=== PATIENT | female | born 1965 | race Caucasian/White ===

== ENCOUNTER 2017-02-14 18:39 | Emergency (ER) | payer BC ==
[2017-02-14 19:06] VITALS: BP 136/79
--- NOTE | 2017-02-14 20:02 | UC ---
Cardiac HPI - HPI Summary HPI Summary: PT HAS HAD DULL INTERMITTENT LEFT ANTERIOR CHEST PAIN AND LEFT ARM PAIN FOR ABOUT A MONTH. EPISODES 2-3 TIMES PER WEEK LASTING A FEW MINUTES. TODAY PAIN IS PERSISTENT FOR THE PAST FEW HOURS. SHE DENIES ANY NAUSEA OR SWEATS BUT DOES HAVE SOME MILD SOB AND DIZZINESS. GOT WORSE WHEN SHE WAS WALKING AROUND. SHE HAS SOME SHARP SHOOTING PAINS DOWN LEFT ARM INTO HAND. - History of Current Complaint Chief Complaint: UCChestPain Stated Complaint: L SIDE ARM PAIN Time Seen by Provider: 02/14/17 19:19 Hx Obtained From: Patient, Family/Silk Screen [employer]or - Hx Last Menstrual Period: 02/01/17 Onset/Duration: Sudden Onset, Lasting Hours, Still Present Timing: Constant Initial Severity: Moderate Current Severity: Moderate Pain Intensity: 5 Chest Pain Location: Left Anterior Character: Dull/Aching Aggravating Factor(s): Exertion Alleviating Factor(s): Nothing Associated Signs & Symptoms: Positive: Chest Pain, Dizziness, SOB. Negative: Syncope, Fever, Diaphoresis, Nausea/Vomiting, Palpitations, Back Pain - Allergy/Home Medications Allergies/Adverse Reactions: Allergies Allergy/AdvReac Type Severity Reaction Status Date / Time No Known Allergies Allergy Verified 02/14/17 19:07 PMH/Surg Hx/FS Hx/Imm Hx Respiratory History: Asthma - Surgical History Surgical History: None - Family History Known Family History: Positive: Hypertension - Social History Alcohol Use: Daily Substance Use Type: None Smoking Status (MU): Never Smoked Tobacco Review of Systems Constitutional: Negative Respiratory: Shortness Of Breath Cardiovascular: Chest Pain Gastrointestinal: Negative Genitourinary: Negative Neurological: Other - DIZZY All Other Systems Reviewed And Are Negative: Yes Physical Exam Triage Information Reviewed: Yes Appearance: Well-Appearing, No Pain Distress, Well-Nourished Vital Signs: Initial Vital Signs Temp 99.2 F 02/14/17 19:01 Pulse 72 02/14/17 19:01 Resp 16 02/14/17 19:01 BP 136/79 02/14/17 19:01 Pulse Ox 99 02/14/17 19:01 Vital Signs Reviewed: Yes Eyes: Positive: Conjunctiva Clear ENT: Positive: Hearing grossly normal Neck: Positive: Supple, Nontender, No Lymphadenopathy Respiratory Exam: Normal Cardiovascular Exam: Normal Abdomen Description: Positive: Soft Musculoskeletal: Positive: No Edema Neurological: Positive: Alert Psychological: Positive: Age Appropriate Behavior Skin: Negative: rashes Diagnostics - EKG Cardiac Rate: NL Cardiac Rhythm: Sinus: Normal - 61 BPM Ectopy: None ST Segment: Normal - Assessment/Plan Course Of Treatment: TO [facility] BY PRIVATE CAR - Clinical Impression Provider Diagnoses: CHEST PAIN Discharge - Discharge Plan Condition: Stable Disposition: OTHER Discharge Disposition Comment: TO [facility] BY PRIVATE CAR Patient Education Materials: Chest Pain (ED) Referrals: Peggy Camargo MD [Primary Care Provider] - If Needed Additional Instructions: GO DIRECTLY TO [facility] FROM HERE FOR FURTHER EVALUATION.
== END 2017-02-14 19:56 ==
LOC: UCEAST 18:39
DX: R07.89 Other chest pain (principal)
CPT/HCPCS: 93005; 99212; G0463

== ENCOUNTER 2017-02-14 20:25 | Observation (INO) | payer BC ==
[2017-02-14] MEDS ORDERED: Aspirin Low Dose CHEW TAB* 81 MG PO ONE (21:25)
[2017-02-14] MEDS ORDERED: Nitroglycerin TAB 0.4 MG* 0.4 MG TAB SL ONE (21:25)
[2017-02-14] MEDS: NS 0.9% 1000 ML* 2,000 ML IV ONE ×2 (21:54→23:36)
[2017-02-14 21:57] LABS: ABS Basophils 0.1 10^3/ul (0-0.2); ABS Eosinophils 0.1 10^3/ul (0-0.6); ABS Lymphocytes 2.2 10^3/ul (1.0-4.8); ABS Monocytes 0.5 10^3/ul (0-0.8); ABS Neutrophils 3.1 10^3/ul (1.5-7.7); ABS Nucleated RBC 0 10^3/ul; Eosinophil % 1.5 % (0-6); Hematocrit 39 % (35-47); Hemoglobin 13.5 g/dl (12.0-16.0); Lymphocyte % 36.8 % (25-47); Mean Corpuscular HGB Conc 35 g/dl (31-36); Mean Corpuscular Hemoglobin 31 pg (27-31); Mean Corpuscular Volume 89 fL (80-97); Mean Platelet Volume 8 um3 (7.4-10.4); Nucleated Red Blood Cells % 0; Platelet Count 266 10^3/ul (150-450); Red Blood Count 4.33 10^6/ul (4.0-5.4); Red Cell Distribution Width 12 % (10.5-15); White Blood Count 5.9 10^3/ul (3.5-10.8)
[2017-02-14 22:08] LABS: INR 0.98 (0.77-1.02)
[2017-02-14 22:22] LABS: EGFR Non-African American 91.2 (>60)
[2017-02-14] MEDS ORDERED: Iohexol 350* (CONTRAST) 500 ML MDV IV ONE (22:24)
[2017-02-15] MEDS ORDERED: Ketorolac INJ* 30 MG/ML 1 ML VIAL IV ONE (00:53)
--- NOTE | 2017-02-15 03:48 | ED ---
Chung Hayes Abhishek, scribed for Arnaldo Pavon MD on 02/14/17 at 2120 . HPI Chest Pain - HPI Summary HPI Summary: This patient is a 51 year old F presenting to [facility] with a chief complaint of chest pressure since today 1600. Episodes of discomfort for a week. Todays episode is described as constant. The patient rates the pain 4/10 in severity. Symptoms aggravated by movement. Symptoms alleviated by nothing. Patient reports numbness/tingling in the pts fingers (left hand), neck pain, edema in LE, intermittent sharp pain in LUE, and SOB. Patient denies diaphoresis, and nausea. PTs was recently out of the country traveling in [facility]. No stress test in recent history according to the pt, and states previously normal EKGs. - History of Current Complaint Chief Complaint: EDChestPainROMI Time Seen by Provider: 02/14/17 21:07 Hx Obtained From: Patient Hx Last Menstrual Period: 02/01/17 Onset/Duration: Worse Since - today 1600 Timing: Intermittent - Current episode is described as constant, Lasting Days - since one week ago. Initial Severity: Moderate Current Severity: Moderate Pain Intensity: 4 Pain Scale Used: 0-10 Numeric Chest Pain Location: Diffuse Character: Pressure/Squeezing Aggravating Factor(s): Nothing Alleviating Factor(s): Nothing Associated Signs and Symptoms: Positive: Chest Pain, Numbness - pt's fingers, Shortness of Breath, Calf Pain/Swelling, Other: - neck pain. Negative: Diaphoresis, Nausea - Allergy/Home Medications Allergies/Adverse Reactions: Allergies Allergy/AdvReac Type Severity Reaction Status Date / Time No Known Allergies Allergy Verified 02/14/17 19:07 PMH/Surg Hx/FS Hx/Imm Hx Endocrine/Hematology History: Denies: Hx Diabetes, Hx Thyroid Disease Cardiovascular History: Denies: Hx Hypertension Respiratory History: Denies: Hx Asthma, Hx Chronic Obstructive Pulmonary Disease (COPD) GI History: Denies: Hx Ulcer - Cancer History Hx Chemotherapy: No Hx Radiation Therapy: No Infectious Disease History: No Infectious Disease History: Denies: Hx Hepatitis, Hx Human Immunodeficiency Virus (HIV), Traveled Outside the [place] in Last 30 Days - Family History Known Family History: Positive: Hypertension Negative: Cardiac Disease - Social History Alcohol Use: Daily Substance Use Type: Reports: None Smoking Status (MU): Never Smoked Tobacco Review of Systems Negative: Skin Diaphoresis Eyes: Negative ENT: Negative Positive: Chest Pain - "pressure" Positive: Shortness Of Breath Negative: Nausea Genitourinary: Negative Musculoskeletal: Other - intermittent sharp pain in LUE, neck pain Positive: Edema - LE Skin: Negative Positive: Numbness - in the left hand Psychological: Normal All Other Systems Reviewed And Are Negative: Yes Physical Exam - Summary Physical Exam Summary: General: well-appearing, no pain distress Skin: warm, color reflects adequate perfusion, dry Head: normal Eyes: EOMI, ISABELA ENT: normal Neck: supple, nontender Respiratory: CTA, breath sounds present Cardiovascular: RRR Abdomen: soft, nontender Bowel: present Musculoskeletal: normal, strength/ROM intact Neurological: normal, sensory/motor intact, A&O x3 Psychological: affect/mood appropriate Triage Information Reviewed: Yes Vital Signs On Initial Exam: Initial Vitals Temp Pulse Resp BP Pulse Ox 97.6 F 77 16 92/74 98 02/14/17 20:27 02/14/17 20:27 02/14/17 20:27 02/14/17 20:27 02/14/17 20:27 Vital Signs Reviewed: Yes Diagnostics - Vital Signs Vital Signs Temp Pulse Resp BP Pulse Ox 02/14/17 20:27 97.6 F 77 16 92/74 98 - Laboratory Lab Results: Lab Results 02/14/17 02/14/17 02/14/17 Range/Units 21:40 21:40 21:40 WBC (3.5-10.8) 10^3/ul RBC (4.0-5.4) 10^6/ul Hgb (12.0-16.0) g/dl Hct (35-47) % MCV (80-97) fL MCH (27-31) pg MCHC (31-36) g/dl RDW (10.5-15) % Plt Count (150-450) 10^3/ul MPV (7.4-10.4) um3 Neut % (Auto) (38-83) % Lymph % (Auto) (25-47) % [place] % (Auto) (1-9) % Eos % (Auto) (0-6) % Baso % (Auto) (0-2) % Absolute Neuts (auto) (1.5-7.7) 10^3/ul Absolute Lymphs (auto) (1.0-4.8) 10^3/ul Absolute Monos (auto) (0-0.8) 10^3/ul Absolute Eos (auto) (0-0.6) 10^3/ul Absolute Basos (auto) (0-0.2) 10^3/ul Absolute Nucleated RBC 10^3/ul Nucleated RBC % INR (Anticoag Therapy) 0.98 (0.77-1.02) APTT 30.3 (26.0-36.3) seconds D-Dimer, Quantitative < 200 (Less Than 230) ng/mL Sodium 136 (133-145) mmol/L Potassium 3.8 (3.5-5.0) mmol/L Chloride 101 (101-111) mmol/L Carbon Dioxide 29 (22-32) mmol/L Anion Gap 6 (2-11) mmol/L BUN 11 (6-24) mg/dL Creatinine 0.68 (0.51-0.95) mg/dL Est GFR ( Amer) 117.3 (>60) Est GFR (Non-Af Amer) 91.2 (>60) BUN/Creatinine Ratio 16.2 (8-20) Glucose 107 H (70-100) mg/dL Lactic Acid (0.5-2.0) mmol/L Calcium 9.1 (8.6-10.3) mg/dL Magnesium 2.0 (1.9-2.7) mg/dL Total Bilirubin 0.70 (0.2-1.0) mg/dL AST 22 (13-39) U/L ALT 28 (7-52) U/L Alkaline Phosphatase 45 (34-104) U/L Total Creatine Kinase 32 (10-223) U/L CK-MB (CK-2) 1.3 (0.6-6.3) ng/mL Troponin I 0.00 (<0.04) ng/mL C-Reactive Protein 2.05 (< 5.00) mg/L B-Natriuretic Peptide 24 ( - 100) pg/mL Total Protein 6.9 (6.4-8.9) g/dL Albumin 4.2 (3.2-5.2) g/dL Globulin 2.7 (2-4) g/dL Albumin/Globulin Ratio 1.6 (1-3) Lipase 12 (11.0-82.0) U/L TSH 1.54 (0.34-5.60) mcIU/mL 02/14/17 02/14/17 02/15/17 Range/Units 21:40 21:40 00:16 WBC 5.9 (3.5-10.8) 10^3/ul RBC 4.33 (4.0-5.4) 10^6/ul Hgb 13.5 (12.0-16.0) g/dl Hct 39 (35-47) % MCV 89 (80-97) fL MCH 31 (27-31) pg MCHC 35 (31-36) g/dl RDW 12 (10.5-15) % Plt Count 266 (150-450) 10^3/ul MPV 8 (7.4-10.4) um3 Neut % (Auto) 53.0 (38-83) % Lymph % (Auto) 36.8 (25-47) % [place] % (Auto) 7.6 (1-9) % Eos % (Auto) 1.5 (0-6) % Baso % (Auto) 1.1 (0-2) % Absolute Neuts (auto) 3.1 (1.5-7.7) 10^3/ul Absolute Lymphs (auto) 2.2 (1.0-4.8) 10^3/ul Absolute Monos (auto) 0.5 (0-0.8) 10^3/ul Absolute Eos (auto) 0.1 (0-0.6) 10^3/ul Absolute Basos (auto) 0.1 (0-0.2) 10^3/ul Absolute Nucleated RBC 0 10^3/ul Nucleated RBC % 0 INR (Anticoag Therapy) (0.77-1.02) APTT (26.0-36.3) seconds D-Dimer, Quantitative (Less Than 230) ng/mL Sodium (133-145) mmol/L Potassium (3.5-5.0) mmol/L Chloride (101-111) mmol/L Carbon Dioxide (22-32) mmol/L Anion Gap (2-11) mmol/L BUN (6-24) mg/dL Creatinine (0.51-0.95) mg/dL Est GFR ( Amer) (>60) Est GFR (Non-Af Amer) (>60) BUN/Creatinine Ratio (8-20) Glucose (70-100) mg/dL Lactic Acid 1.1 (0.5-2.0) mmol/L Calcium (8.6-10.3) mg/dL Magnesium (1.9-2.7) mg/dL Total Bilirubin (0.2-1.0) mg/dL AST (13-39) U/L ALT (7-52) U/L Alkaline Phosphatase (34-104) U/L Total Creatine Kinase (10-223) U/L CK-MB (CK-2) (0.6-6.3) ng/mL Troponin I 0.00 (<0.04) ng/mL C-Reactive Protein (< 5.00) mg/L B-Natriuretic Peptide ( - 100) pg/mL Total Protein (6.4-8.9) g/dL Albumin (3.2-5.2) g/dL Globulin (2-4) g/dL Albumin/Globulin Ratio (1-3) Lipase (11.0-82.0) U/L TSH (0.34-5.60) mcIU/mL Result Diagrams: 02/14/17 21:40 02/14/17 21:40 Lab Statement: Any lab studies that have been ordered have been reviewed, and results considered in the medical decision making process. - CT CT CErvical Spine CT Interpretation Completed By: Radiologist - Ct Cervical Spine reveals the cervical vertebrae are normally alligned. No fracture or destructive bone lesion. At the C6-7, there is small posterior osteophyte. At C6-7 there are degenerative left facet changes. There are no other major bony degenerative changes. No stenosis of the cervical bony canal. In order to evaluate for degenerative disc disease and particularly foraminal canal, cord disease. MRI is more sensitive. ED physician has reviewed this radiology report and agrees. CT CTA Chest CT Interpretation Completed By: Radiologist - CTA chest reveals negative for pulmonary embolus, negative for thoracic aortic aneurysm or dissection. Lungs are clear of acute disease. The ED Physician has reviewed this radiology report and agrees. - EKG 2033 EKG Rhythm: Sinus Rhythm - 73 bpm EKG Interpretation: EKG taken at 2033 reveals RSR in V1 or V2, probably normal variant Chest Pain Course/Dx - Course Course Of Treatment: DISCUSSED RESULTS WITH PATIENT. 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 - Diagnoses Provider Diagnoses: Chest pain, Neck pain, Paresthesia of left arm Discharge - Discharge Plan Condition: Stable Disposition: ADMITTED TO [facility] Referrals: Peggy Camargo MD [Primary Care Provider] - The documentation as recorded by the Chung santiago Abhishek accurately reflects the service I personally performed and the decisions made by me, Arnaldo Pavon MD.
[2017-02-15] MEDS ORDERED: Ondansetron INJ* 2 MG/ML VIAL IV PRN (04:00)
[2017-02-15] MEDS ORDERED: Acetaminophen SUPP* 650 MG SUPP PR PRN (04:00)
[2017-02-15] MEDS ORDERED: NS 0.9% 1000 ML* 1,000 ML IV SCH (04:00)
[2017-02-15] MEDS ORDERED: Omeprazole CAP* 20 MG PO SCH (06:00)
--- NOTE | 2017-02-15 06:40 | HP ---
H&P (Free Text) History and Physical: PCP: Aneta Camargo MD Date/Time: 02/15/2017 0310 CC: chest pain HPI: Mrs Corado is a 51YO female HX RLE DVT returned from a trip last week to her home country of [facility] who has been experiencing intermittent dull chest pressure radiating down the L arm for the past 2 weeks associated with some mild SOB & palpitations, but no sweating, N/V, or light-headedness. Yesterday morning it began to wax and wane becoming continuous around 1600 and rated at 3- 5/10. There were no specific exacerbating or alleviating factors. She denies HX of similar. She presented to urgent care and was referred to [facility] for more thorough evaluation. Comparison of ECG performed at urgent care vs [facility] shows slight concerning change isolated to V3. Labs are negative. 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[employer]; full code status FamHx: no early onset CAD/CVA ROS: as above, otherwise reviewed and all were negative vitals: Vital Signs Temp 36.9 C 02/15/17 05:15 Pulse 63 02/15/17 05:15 Resp 16 02/15/17 05:15 BP 112/66 02/15/17 05:15 Pulse Ox 98 02/15/17 05:15 Intake & Output 02/14/17 02/14/17 02/15/17 11:59 23:59 11:59 Intake Total 1000 1000 Balance 1000 1000 Weight 69.853 kg 71.441 kg Intake: IV Fluids 1000 1000 Constitutional: NAD, normally developed, well-nourished white female HEENM: atraumatic; sclera/conjunctiva: anicteric/clear; hearing: clinically intact; oropharynx: clear, mucosa moist Neck: soft tissue: non-tender; thyroid: normal Pulmonary: clear to auscultation bilaterally, good aeration, no accessory muscle use CV: RR/RR, normal S1S2, no carotid bruit, no jugular venous distention, 2+ B DP/ PT, mild BLE edema Abdominal: soft, non-distended, non-tender, no rebound/guarding/rigidity, normoactive bowel sounds, no hepatosplenomegaly or masses, no costovertebral angle tenderness Musculoskeletal: general: grossly intact, no palpable tenderness, negative Riddhi 's B Integumental: normal appearance and texture of exposed skin Psychiatric orientation: AA&O to PPS affect: calm mood: cooperative, pleasant eye contact: good content: reliable responses: timely insight: good Testing: Lab Results 02/14/17 02/14/17 02/14/17 Range/Units 21:40 21:40 21:40 WBC (3.5-10.8) 10^3/ul RBC (4.0-5.4) 10^6/ul Hgb (12.0-16.0) g/dl Hct (35-47) % MCV (80-97) fL MCH (27-31) pg MCHC (31-36) g/dl RDW (10.5-15) % Plt Count (150-450) 10^3/ul MPV (7.4-10.4) um3 Neut % (Auto) (38-83) % Lymph % (Auto) (25-47) % [place] % (Auto) (1-9) % Eos % (Auto) (0-6) % Baso % (Auto) (0-2) % Absolute Neuts (auto) (1.5-7.7) 10^3/ul Absolute Lymphs (auto) (1.0-4.8) 10^3/ul Absolute Monos (auto) (0-0.8) 10^3/ul Absolute Eos (auto) (0-0.6) 10^3/ul Absolute Basos (auto) (0-0.2) 10^3/ul Absolute Nucleated RBC 10^3/ul Nucleated RBC % INR (Anticoag Therapy) 0.98 (0.77-1.02) APTT 30.3 (26.0-36.3) seconds D-Dimer, Quantitative < 200 (Less Than 230) ng/mL Sodium 136 (133-145) mmol/L Potassium 3.8 (3.5-5.0) mmol/L Chloride 101 (101-111) mmol/L Carbon Dioxide 29 (22-32) mmol/L Anion Gap 6 (2-11) mmol/L BUN 11 (6-24) mg/dL Creatinine 0.68 (0.51-0.95) mg/dL Est GFR ( Amer) 117.3 (>60) Est GFR (Non-Af Amer) 91.2 (>60) BUN/Creatinine Ratio 16.2 (8-20) Glucose 107 H (70-100) mg/dL Lactic Acid (0.5-2.0) mmol/L Calcium 9.1 (8.6-10.3) mg/dL Magnesium 2.0 (1.9-2.7) mg/dL Total Bilirubin 0.70 (0.2-1.0) mg/dL AST 22 (13-39) U/L ALT 28 (7-52) U/L Alkaline Phosphatase 45 (34-104) U/L Total Creatine Kinase 32 (10-223) U/L CK-MB (CK-2) 1.3 (0.6-6.3) ng/mL Troponin I 0.00 (<0.04) ng/mL C-Reactive Protein 2.05 (< 5.00) mg/L B-Natriuretic Peptide 24 ( - 100) pg/mL Total Protein 6.9 (6.4-8.9) g/dL Albumin 4.2 (3.2-5.2) g/dL Globulin 2.7 (2-4) g/dL Albumin/Globulin Ratio 1.6 (1-3) Lipase 12 (11.0-82.0) U/L TSH 1.54 (0.34-5.60) mcIU/mL 02/14/17 02/14/17 02/15/17 Range/Units 21:40 21:40 00:16 WBC 5.9 (3.5-10.8) 10^3/ul RBC 4.33 (4.0-5.4) 10^6/ul Hgb 13.5 (12.0-16.0) g/dl Hct 39 (35-47) % MCV 89 (80-97) fL MCH 31 (27-31) pg MCHC 35 (31-36) g/dl RDW 12 (10.5-15) % Plt Count 266 (150-450) 10^3/ul MPV 8 (7.4-10.4) um3 Neut % (Auto) 53.0 (38-83) % Lymph % (Auto) 36.8 (25-47) % [place] % (Auto) 7.6 (1-9) % Eos % (Auto) 1.5 (0-6) % Baso % (Auto) 1.1 (0-2) % Absolute Neuts (auto) 3.1 (1.5-7.7) 10^3/ul Absolute Lymphs (auto) 2.2 (1.0-4.8) 10^3/ul Absolute Monos (auto) 0.5 (0-0.8) 10^3/ul Absolute Eos (auto) 0.1 (0-0.6) 10^3/ul Absolute Basos (auto) 0.1 (0-0.2) 10^3/ul Absolute Nucleated RBC 0 10^3/ul Nucleated RBC % 0 INR (Anticoag Therapy) (0.77-1.02) APTT (26.0-36.3) seconds D-Dimer, Quantitative (Less Than 230) ng/mL Sodium (133-145) mmol/L Potassium (3.5-5.0) mmol/L Chloride (101-111) mmol/L Carbon Dioxide (22-32) mmol/L Anion Gap (2-11) mmol/L BUN (6-24) mg/dL Creatinine (0.51-0.95) mg/dL Est GFR ( Amer) (>60) Est GFR (Non-Af Amer) (>60) BUN/Creatinine Ratio (8-20) Glucose (70-100) mg/dL Lactic Acid 1.1 (0.5-2.0) mmol/L Calcium (8.6-10.3) mg/dL Magnesium (1.9-2.7) mg/dL Total Bilirubin (0.2-1.0) mg/dL AST (13-39) U/L ALT (7-52) U/L Alkaline Phosphatase (34-104) U/L Total Creatine Kinase (10-223) U/L CK-MB (CK-2) (0.6-6.3) ng/mL Troponin I 0.00 (<0.04) ng/mL C-Reactive Protein (< 5.00) mg/L B-Natriuretic Peptide ( - 100) pg/mL Total Protein (6.4-8.9) g/dL Albumin (3.2-5.2) g/dL Globulin (2-4) g/dL Albumin/Globulin Ratio (1-3) Lipase (11.0-82.0) U/L TSH (0.34-5.60) mcIU/mL 02/15/17 Range/Units 04:30 WBC (3.5-10.8) 10^3/ul RBC (4.0-5.4) 10^6/ul Hgb (12.0-16.0) g/dl Hct (35-47) % MCV (80-97) fL MCH (27-31) pg MCHC (31-36) g/dl RDW (10.5-15) % Plt Count (150-450) 10^3/ul MPV (7.4-10.4) um3 Neut % (Auto) (38-83) % Lymph % (Auto) (25-47) % [place] % (Auto) (1-9) % Eos % (Auto) (0-6) % Baso % (Auto) (0-2) % Absolute Neuts (auto) (1.5-7.7) 10^3/ul Absolute Lymphs (auto) (1.0-4.8) 10^3/ul Absolute Monos (auto) (0-0.8) 10^3/ul Absolute Eos (auto) (0-0.6) 10^3/ul Absolute Basos (auto) (0-0.2) 10^3/ul Absolute Nucleated RBC 10^3/ul Nucleated RBC % INR (Anticoag Therapy) (0.77-1.02) APTT (26.0-36.3) seconds D-Dimer, Quantitative (Less Than 230) ng/mL Sodium (133-145) mmol/L Potassium (3.5-5.0) mmol/L Chloride (101-111) mmol/L Carbon Dioxide (22-32) mmol/L Anion Gap (2-11) mmol/L BUN (6-24) mg/dL Creatinine (0.51-0.95) mg/dL Est GFR ( Amer) (>60) Est GFR (Non-Af Amer) (>60) BUN/Creatinine Ratio (8-20) Glucose (70-100) mg/dL Lactic Acid (0.5-2.0) mmol/L Calcium (8.6-10.3) mg/dL Magnesium (1.9-2.7) mg/dL Total Bilirubin (0.2-1.0) mg/dL AST (13-39) U/L ALT (7-52) U/L Alkaline Phosphatase (34-104) U/L Total Creatine Kinase (10-223) U/L CK-MB (CK-2) (0.6-6.3) ng/mL Troponin I 0.00 (<0.04) ng/mL C-Reactive Protein (< 5.00) mg/L B-Natriuretic Peptide ( - 100) pg/mL Total Protein (6.4-8.9) g/dL Albumin (3.2-5.2) g/dL Globulin (2-4) g/dL Albumin/Globulin Ratio (1-3) Lipase (11.0-82.0) U/L TSH (0.34-5.60) mcIU/mL ECG, personally reviewed: NSR rate 73, no ischemia; compared to one from urgent care there is resolution of slight loss of upwards T-wave concavity which is most likely related to lead placement CTA chest, personally reviewed: FINDINGS: Negative for pulmonary embolus. Negative for thoracic aortic aneurysm or dissection. Lungs are clear of acute disease. CT C-spine WO, personally reviewed: FINDINGS: The cervical vertebrae are normally aligned. No fracture or destructive bone lesion. At C6-7, there is small posterior osteophyte. At C6-7, there are degenerative left facet changes. There are no other major bony degenerative changes. No stenosis of the cervical bony canal. In order to evaluate for degenerative disc disease and particularly foraminal, canal, cord disease, MRI is more sensitive. Impression: 51F presenting with chest pain for r/o ACS DIAGNOSIS & PLAN Primary chest pain r/o ACS : telemetry : aspirin : trend troponin : exercise stress test in AM : supplemental oxygen : supportive care Secondary mild-intermittent asthma : continue current regimen HX DVT : heparin SQ Admission Rational: observation for r/o ACS DVTp: heparin SQ Code Status: full HCP:
[2017-02-15] MEDS ORDERED: Albuterol HFA INHALER* 8 gm MDI INH PRN (06:45)
[2017-02-15] MEDS ORDERED: ALPRAZolam TAB* 0.25 MG PO PRN (06:45)
--- NOTE | 2017-02-15 07:47 | RAD ---
INDICATION: Left neck pain and arm numbness. COMPARISON: There are no prior studies available for comparison. TECHNIQUE: Contiguous axial sections were obtained from the skull base through the T2 vertebra. Images were reconstructed in the sagittal and coronal planes. FINDINGS: There is straightening of the cervical spine with loss of the normal cervical lordosis. No prevertebral soft tissue swelling or fracture is seen. The right C1 transverse process makes an unusual articulation with the occipital bone with mild degenerative change around this articulation. At the C5-C6 level there is mild posterior uncinate process spurring. No significant spinal canal or neural foraminal narrowing is seen. At the C6-C7 level there is mild posterior uncinate process spurring. There is mild spinal canal narrowing and mild bilateral neural foraminal narrowing. No other areas of spinal canal narrowing are seen. IMPRESSION: 1. MILD DEGENERATIVE DISC DISEASE AT THE C5-C6 AND C6-C7 LEVELS NOTED. IF THE PATIENT'S SYMPTOMS PERSIST RECOMMEND FOLLOW-UP MR IMAGING 2. THERE IS A SOMEWHAT UNUSUAL ARTICULATION BETWEEN THE OCCIPITAL BONE AND THE TRANSVERSE PROCESS OF C1 ON THE RIGHT SIDE WITH DEGENERATIVE CHANGE AROUND THE ARTICULATION.
--- NOTE | 2017-02-15 08:01 | RAD ---
INDICATION: Chest pain radiating down the left arm. COMPARISON: Comparison is made with a prior chest x-ray study from September 28, 2014. TECHNIQUE: A CT angiogram of the chest was performed with intravenous following intravenous injection of 64 ml of Omnipaque 350 nonionic contrast. Contiguous axial sections were obtained from the lung apices through the lung bases. Images were reconstructed in the coronal and sagittal planes. FINDINGS: There is relatively homogeneous opacification of the pulmonary arteries. No intraluminal filling defect or pulmonary embolism is seen. The heart is within normal limits in size. No pericardial effusion is present. The thoracic aorta is normal in caliber and demonstrates homogeneous contrast opacification. There appears to be residual thymus tissue in the anterior mediastinum. No significant enlarged based on the left hilar lymph nodes are seen. There are mild dependent infiltrates in both lower lobes most consistent with subsegmental atelectasis. The lungs are otherwise clear. Images of the upper abdomen demonstrate no evidence for acute finding. No significant focal osseous abnormality is seen. IMPRESSION: NO EVIDENCE FOR PULMONARY EMBOLISM.
[2017-02-15] MEDS ORDERED: Mometasone/Formoter 100/5 MDI INH SCH (09:00)
[2017-02-15] MEDS ORDERED: Docusate CAP* 100 MG PO SCH (09:00)
[2017-02-15 15:47] VITALS: BP 110/63
[2017-02-16] MEDS ORDERED: Aspirin EC Low Dose* 81 MG TAB.EC PO SCH (09:00)
== END 2017-02-15 17:50 | disposition home or self-care (01) ==
LOC: ED 20:25 → INTOOBSV 02-15 05:17 → MEDTELE 02-15 05:17
PROVIDERS: ADMIT Hospitalist; ATTEND Internal Medicine
DX: R07.9 Chest pain, unspecified (principal); J45.20 Mild intermittent asthma, uncomplicated; R06.02 Shortness of breath; Z86.718 Personal history of other venous thrombosis and embolism; Z79.01 Long term (current) use of anticoagulants; M54.2 Cervicalgia; R20.2 Paresthesia of skin
CPT/HCPCS: 36415; 71275; 72125; 80053; 82550; 82553; 83605; 83690; 83735; 83880; 84443; 84484; 85025; 85379; 85610; 85730; 86140; 93005; 96361; 96374; 99285; A9270-GY; G0378; J1885; Q9967

== ENCOUNTER 2019-04-22 08:00 | Emergency (ER) | payer BC ==
--- OUTSIDE RECORDS SUMMARY | 2019-04-22 08:07 | XMS REPORT | Continuity of Care Document ---
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 Onset: 12/07/2014 Social History Type Date Description Comments Sex Unknown Tobacco Use Start: Unknown Never Smoked Cigarettes ETOH Use Rarely consumes alcohol Tobacco Use Start: Unknown Patient has never smoked Recreational Drug Use Denies Drug Use Smoking Status Reviewed: 02/27/19 Patient has never smoked Exercise Type/Frequency Exercises regularly [employer] for cardio and weight lifting 3x week Allergies, Adverse Reactions, Alerts Description No Known Drug Allergies Medications Active Medications SIG Qnty Indications Ordering Provider Date Xanax one by mouth up 14tabs Peggy Camargo, 03/25/2016 0.25mg Tablets to three times M.D. daily as needed for anxiety Advair HFA Inhale Two Puffs 36units J45.20 Jenn Dallas MD 12/07/2014 By Mouth Twice A 45-21mcg/Act Aerosol Day Immunizations CPT Code Status Date Vaccine Reaction Lot # [id number] Given 03/22/2018 Influenza Virus Vaccine, [id number] Quadrivalent, Split, Preservative Free [id number] Given 03/19/2017 Influenza Virus Vaccine, [id number] Quadrivalent, Split, Preservative Free 83136 Given 02/25/2016 Influ Virus Vaccine, no immediate reaction [id number] Quadrivalent, Split Virus, noted ... [place] [address] Given 02/18/2015 Pneumonia Vaccine [id number] Given 10/25/2014 Influenza Virus Vaccine, [id number] Quadrivalent, Split, Preservative Free Vital Signs Date Vital Result Comment 02/27/2019 9:15am Height 68 inches 5'8" Weight 158.00 lb Heart Rate 59 /min BP Systolic Sitting 118 mmHg BP Diastolic Sitting 60 mmHg O2 % BldC Oximetry 98 % BMI (Body Mass Index) 24.0 kg/m2 08/10/2018 1:52pm Height 68 inches 5'8" Weight 153.38 lb Heart Rate 76 /min BP Systolic Sitting 113 mmHg Rue reg cuff BP Diastolic Sitting 73 mmHg Rue reg cuff O2 % BldC Oximetry 96 % BMI (Body Mass Index) 23.3 kg/m2 Results Description No Information Available Procedures Date Code Description Status 05/06/2018 [id number] Mammogram Completed 04/29/2017 [id number] Mammogram Completed 04/09/2016 [id number] Mammogram Completed 01/27/2016 [id number] Colonoscopy Completed 03/01/2015 [id number] Mammogram Completed 09/24/2011 [id number] Mammogram Completed 09/27/2009 [id number] Mammogram Completed 09/25/2005 [id number] Mammogram Completed Medical Devices Description No Information Available Encounters Description No Information Available Assessments Date Code Description Provider 02/27/2019 J45.909 Unspecified asthma, uncomplicated Jenn Dallas MD Plan of Treatment Future Appointment(s):03/24/2019 9:20 am - Peggy Camargo M.D. at [facility] Internal Medicine - [facility]02/27/2019 - Jenn Dallas MDJ45.909 Unspecified asthma, uncomplicatedNew Orders:PFTW/Spirometry Vol Pre/Post Bronchdilat Dlco Complete, Ordered: 02/27/19Follow up:1 year Functional Status Description No Information Available Mental Status Description No Information Available Referrals Description No Information Available
--- OUTSIDE RECORDS SUMMARY | 2019-04-22 08:07 | XMS REPORT | Continuity of Care Document ---
:1965 External Reference #:[id number] Author Name Peggy Camargo M.D. 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 Onset: 12/07/2014 Social History Type Date Description Comments Sex Unknown Tobacco Use Start: Unknown Never Smoked Cigarettes ETOH Use Consumes 1 glass of with dinner, wine per day standard size glass. Takes 3-4 days for her and her to finish a bottle Tobacco Use Start: Unknown Patient has never smoked Recreational Drug Use Denies Drug Use Smoking Status Reviewed: 03/24/19 Patient has never smoked Exercise Type/Frequency Exercises [...] Code Status Date Vaccine Reaction Lot # [id number] Given 03/24/2019 Influenza Virus Vaccine, [id number] Quadrivalent ([id number]), Derived From Cell 39564 Given 03/24/2019 Tdap - [id number] Tetanus/Diptheria/Acellular Pertussis 46314 Given 03/22/2018 Influenza Virus Vaccine, [id number] Quadrivalent, Split, Preservative Free 02871 Given 03/19/2017 Influenza Virus Vaccine, [id number] Quadrivalent, Split, Preservative Free 92004 Given 02/25/2016 Influ Virus Vaccine, no immediate reaction [id number] Quadrivalent, Split Virus, noted ... [place] [address] Given 02/18/2015 Pneumonia Vaccine [id number] 34850 Given 10/25/2014 Influenza Virus Vaccine, x7yr2 Quadrivalent, Split, Preservative Free Vital Signs Date Vital Result Comment 03/24/2019 9:28am Height 68 inches 5'8" Weight 159.00 lb Heart Rate 66 /min BP Systolic 119 mmHg BP Diastolic 79 mmHg O2 % BldC Oximetry 99 % BMI (Body Mass Index) 24.2 kg/m2 02/27/2019 9:15am Height 68 inches 5'8" Weight 158.00 lb Heart Rate 59 /min BP Systolic Sitting 118 mmHg BP Diastolic Sitting 60 mmHg O2 % BldC Oximetry 98 % BMI (Body Mass Index) 24.0 kg/m2 Results Description No Information Available Procedures Date Code Description Status 02/27/2019 03736 Diffusing Capacity Completed 02/27/2019 14237 Plethysmography Determination Lung Volumes & Per Airway Completed Resist 02/27/2019 96257 Pulmonary Function><Bronchodil Completed 05/06/2018 [id number] Mammogram Completed 04/29/2017 [id number] Mammogram Completed 04/09/2016 [id number] Mammogram Completed 01/27/2016 [id number] Colonoscopy Completed 03/01/2015 [id number] Mammogram Completed 09/24/2011 [id number] Mammogram Completed 09/27/2009 [id number] Mammogram Completed 09/25/2005 [id number] Mammogram Completed Medical Devices Description No Information Available Encounters Type Date Location Provider Dx Diagnosis Office Visit 02/27/2019 [facility] Chatterjee45.909 Unspecified asthma, 9:[facility]a [facility] uncomplicated [facility] Assessments Date Code Description Provider 03/24/2019 Z00.00 Encounter for general adult medical Peggy Camargo M.D. examination without abnormal findings 03/24/2019 Z12.31 Encounter for screening mammogram for Peggy Camargo M.D. malignant neoplasm of breast 02/27/2019 J45.909 Unspecified asthma, donte Dallas MD 02/27/2019 J45.909 Unspecified asthma, uncomplicated Jenn Dallas MD Plan of Treatment Future Appointment(s):03/26/2020 9:20 am - Peggy Camargo M.D. at [facility] Internal Medicine - [facility]03/24/2019 - Peggy Camargo M.D.Z00.00 Encounter for general adult medical examination without abnormal findingsComments:VACCINES :Flu shot every year in the fall.Tetanus: last one done in 2004Pneumonia vaccine : you had the pneumonia vaccine in 2016 because you have asthma. Booster at age 65Shingles vaccine: there is a new shingles vaccine - Shingrix. Recommended for people at age 50. 90% effective. This is a new shingles vaccine, available at pharmacies. Series of 2 shots, given 2-6 months apart. Most people get a flu- like reaction. Cost is about $400 - call your insurance about coverage. Not widely available - talk to your pharmacist about their waiting list SCREENING: Colonoscopy: last one done 2015. Next due in January this year with Dr. Kurtzogram: last done 05/06/18Pap smear: last done in 2018, next due in 4Cholesterol: checked in 2018, numbers were goodFollow up:1 yearZ12.31 Encounter for screening mammogram for malignant neoplasm of breast Functional Status Description No Information Available Mental Status Description No Information Available Referrals Description No Information Available
--- NOTE | 2019-04-22 08:10 | UC ---
Respiratory Complaint HPI - HPI Summary HPI Summary: 53 yo female presents with chest complaint. She tells me that yesterday she noticed a "stinging" in her central chest along the sternum that was only present with taking deep breaths. Today she states the discomfort has become constant. Rates it 2/10. Is present at rest and does not change with movement or activities. She has a hx of asthma and uses her advair daily, but has not used her albuterol inhaler. Has not taken anything OTC for her symptoms. She denies fever, chills, body aches, sinus symptoms, sore throat, cough, SOB, chest pain, palpitations, abdominal pain, n/v. No hx of blood clots. She does not smoke. No recent travel. 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 Also mentions that she had a stress test in 2018 due to chest pain and was told it was normal - states discomfort today is not similar to that at all. - History of Current Complaint Stated Complaint: CEST CONGESTION Time Seen by Provider: 04/22/19 08:07 Hx Obtained From: Patient Hx Last Menstrual Period: 02/01/17 Onset/Duration: Sudden Onset Severity Initially: Mild Severity Currently: Mild Pain Intensity: 2 Pain Scale Used: 0-10 Numeric - Allergies/Home Medications Allergies/Adverse Reactions: Allergies Allergy/AdvReac Type Severity Reaction Status Date / Time No Known Allergies Allergy Verified 04/22/19 08:14 Home Medications: Home Medications ALPRAZolam TAB* [Xanax TAB*] 0.25 mg PO TID PRN 01/23/16 [History Confirmed ] Albuterol HFA INHALER* [Ventolin HFA Inhaler*] 1 puff INH Q6H PRN 01/23/16 [ History Confirmed 04/22/19] Fluticas/Salmet 45/21 (NF) [Advair HFA 45/21 (NF)] 1 puff INH BID 01/23/16 [ History Confirmed 04/22/19] PMH/Surg Hx/FS Hx/Imm Hx Respiratory History: Asthma Psychological History: Anxiety - Surgical History Surgical History: None Surgery Procedure, Year, and Place: DENIES - Family History Known Family History: Positive: Hypertension Negative: Cardiac Disease - Social History Lives: With Family Alcohol Use: Occasionally Alcohol Amount: with dinner, glass of wine Substance Use Type: None Smoking Status (MU): Never Smoked Tobacco Review of Systems All Other Systems Reviewed And Are Negative: No Constitutional: Positive: Negative Skin: Positive: Negative Eyes: Positive: Negative ENT: Positive: Negative Respiratory: Positive: Other - "stinging in chest" Cardiovascular: Positive: Negative Gastrointestinal: Positive: Negative Neurovascular: Positive: Negative Musculoskeletal: Positive: Negative Neurological/Mental Status: Positive: Negative Psychological: Positive: Negative Physical Exam - Summary Physical Exam Summary: GENERAL: NAD. WDWN. No pain distress. SKIN: No rashes, sores, lesions, or open wounds. No lower leg edema. HEENT: Head: AT/NC Eyes: EOM intact. Conjunctiva clear without inflammation or discharge. Ears: Hearing grossly normal. TMs intact, no bulging, erythema, or edema. Nose: Nasal mucosa pink and moist. NTTP maxillary and frontal sinus. Throat: Posterior oropharynx without exudates, erythema, or tonsillar enlargement. Uvula midline. NECK: Supple. Nontender. No lymphadenopathy. CHEST: CTAB. No r/r/w. No accessory muscle use. Breathing comfortably and in no distress. CV: RRR. Pulses intact. Cap refill <2seconds. ABDOMEN: Soft. NTTP. No distention or guarding. No CVA tenderness. Bowel sounds present MSK: Discomfort not reproducible with palpation or movement. NEURO: Alert. PSYCH: Age appropriate behavior. Triage Information Reviewed: Yes Vital Signs: Vital Signs: Temp Pulse Resp BP Pulse Ox 98.7 F 69 16 125/77 96 04/22/19 08:09 04/22/19 08:09 04/22/19 08:09 04/22/19 08:09 04/22/19 08:09 Vital Signs Reviewed: Yes Diagnostics - Radiology CXR Radiology Interpretation Completed By: Radiologist Summary of Radiographic Findings: IMPRESSION: No radiographic evidence of acute cardiopulmonary disease. - EKG Summary of EKG Findings: EKG Sinus bradycardia 59bpm. No STEMI. No change compared to 02/2017. Read by Dr. Stanford. Respiratory Course/Dx - Course Course Of Treatment: Exam WNL. EKG no change. CXR negative. No fever, cough, or SOB. Well's score 0. Her only risk factor for cardiac event is her age - nonsmoker, nondrinker, no DM , no HTN/HLD, no fam hx. In the clinic she was given a duoneb treatment for her discomfort and had mild improvement. After discussing with her that her exam and workup today was reassuring - she stated she felt much better and thinks the sensation has mostly resolved. Discussed with the pt that her vitals, exam, and workup today are reassuring. Encouraged f/u with her PCP within 3 days if her symptoms persist. If her symptoms worsen to call 911 or go to the ED immediately. - Differential Dx/Diagnosis Differential Diagnosis/HQI/PQRI: Asthma, Bronchitis, Lower Resp Infection, Pneumothorax, Pulmonary Embolism, SARS, Other - PNA. Provider Diagnosis: Asthma Discharge ED - Sign-Out/Discharge Documenting (check all that apply): Patient Departure All imaging exams completed and their final reports reviewed: Yes - Discharge Plan Condition: Stable Disposition: HOME Referrals: Peggy Camargo MD [Primary Care Provider] - 3 Days Additional Instructions: I am unsure the cause of your symptoms, but your workup and exam today were both normal/negative. If your symptoms persist, I recommend follow up with your primary doctor within 3 days. If your symptoms worsen, you become short of breath, or have chest pain - please call 911 or go to the ED immediately. - Billing Disposition and Condition Condition: STABLE Disposition: Home
[2019-04-22 08:14] VITALS: BP 125/77
[2019-04-22] MEDS ORDERED: Albuterol/Ipratropium NEB.SOL* Albuterol 2.5 MG/Ipratropium 0.5 MG 3 ML INH ONE (08:22)
== END 2019-04-22 09:04 | disposition home or self-care (01) ==
LOC: UCEAST 08:00
DX: J45.909 Unspecified asthma, uncomplicated (principal); F41.9 Anxiety disorder, unspecified
CPT/HCPCS: 71046; 93005; 99211; A9270-GY; G0463